=== PATIENT | male | born 1975 | race Caucasian/White ===

== ENCOUNTER 2017-04-13 11:32 | Emergency (ER) | payer OTHER ==
[~2017-04-13] VITALS: Ht 172.7 cm; Wt 68.0 kg
--- NOTE | 2017-04-13 11:40 | NUR ---
PRESENTS SELF TO ED DT CHEST PALPITATION/ MUSCLE SPASMS X WEEKS WHENEVER HE'S TRYING TO SLEEP. PATIENT IS AAO4. APPEARS IN NO APPARENT DISTRESS, RESPIRATION EVEN AND UNLABORED. SKIN IS WARM TO TOUCH AND NON DIAPHORETIC. AFEBRILE. VSS. PENDING MD CAMPBELL
--- NOTE | 2017-04-13 11:52 | NUR ---
DR. ARREGUIN AT BEDSIDE
--- NOTE | 2017-04-13 11:55 | NUR ---
EKG IN PROGRESS
[2017-04-13] MEDS ORDERED: ASPIRIN 325 MG TABLET ONE (11:57)
[2017-04-13] MEDS ORDERED: ASPIRIN EC 325 MG TABLET.DR PO ONE (12:00)
[2017-04-13 12:05] LABS: BASOPHILS # (AUTO) 0.1 /CMM (0.0-0.2); BASOPHILS % (AUTO) 1.8 % (0.0-2.0); EOSINOPHILS # (AUTO) 0.1 /CMM (0.0-0.7); EOSINOPHILS % (AUTO) 1.6 % (0.0-6.0); HEMATOCRIT 45 % (39-51); HEMOGLOBIN 14.9 g/dL (13.5-17.5); LYMPHOCYTES # (AUTO) 2.6 /CMM (0.8-4.8); LYMPHOCYTES % (AUTO) 35.9 % (20.0-44.0); MEAN CORPUSCULAR HEMOGLOBIN 30 PG (26.0-33.0); MEAN CORPUSCULAR HGB CONC 33 g/dl (31.0-36.0); MEAN CORPUSCULAR VOLUME 91 fL (80-96); MONOCYTES # (AUTO) 0.4 /CMM (0.1-1.30); MONOCYTES % (AUTO) 6.1 % (2.0-12.0); NEUTROPHILS % (AUTO) 54.6 % (43.0-81.0); PLATELET COUNT (AUTO) 163 /CMM (150-450); RDW COEFFICIENT OF VARIATION 11.8 (11.5-15.0); RED BLOOD CELL COUNT(AUTO) 4.98 MIL/uL (4.5-6.0); WHITE BLOOD COUNT (AUTO) 7.2 K/uL (4.3-11.0)
[2017-04-13 12:15] LABS: CALCIUM, SERUM 8.9 mg/dL (8.5-10.1); CARBON DIOXIDE 32 mmol/L (21-32); CHLORIDE 104 mmol/L (98-107); CREATININE 1.2 mg/dL (0.6-1.3); GLUCOSE 72 mg/dL (74-106); POTASSIUM 4.1 mmol/L (3.5-5.1); SODIUM SERUM 142 mmol/L (136-145); UREA NITROGEN, BLOOD 11 mg/dL (7-18)
[2017-04-13 12:19] LABS: INR 1.12 (0.87-1.13); PROTHROMBIN TIME 11.8 SECS (9.5-12.7)
[2017-04-13 12:23] LABS: TROPONIN I < 0.017 ng/mL (0.00-0.056)
[2017-04-13 13:46] VITALS: BP 134/77
--- NOTE | 2017-04-13 13:47 | NUR ---
IV removed. Catheter intact and site benign. Pressure and 4x4 applied to site. No bleeding noted.Patient discharged to home in stable condition. Written and verbal after care instructions given. Patient verbalizes understanding of instruction.
== END 2017-04-13 13:47 | disposition home or self-care (01) ==
LOC: ER 11:34
DX: R07.89 Other chest pain (principal); R00.2 Palpitations; Z79.82 Long term (current) use of aspirin
CPT/HCPCS: 36415; 80048-TC; 84484-TC; 85025-TC; 85730-TC; A4606; Z7610

== ENCOUNTER 2018-12-11 16:53 | Emergency (ER) | payer OTHER ==
[~2018-12-11] VITALS: Ht 172.7 cm; Wt 68.0 kg
--- NOTE | 2018-12-11 17:02 | NUR ---
UNABLE TO URINATE SINCE 1600 S/P PROCEDURE FOR BPH AT 1130 TODAY. VERY UNCOMFORTABLE. AOX4, AMB, VSS, RR EVEN AND UNLABORED. SKIN INTACT, NO ACUTE DISTRESS NOTED. READY FOR EVAL.
--- NOTE | 2018-12-11 18:23 | NUR ---
PLASCENCIA INSERTED PER MD ORDER. URINE SAMPLE COLLECTED AND SENT TO STAT LAB
[2018-12-11 18:26] LABS: APPEARANCE,URINE Clear (CLEAR); BILIRUBIN,URINE Negative (NEGATIVE); BLOOD, URINE Moderate Ery/uL (NEGATIVE); COLOR,URINE Yellow (YELLOW); KETONES,URINE Negative (NEGATIVE); LEUKOCYTE ESTERASE ,URINE Negative (NEGATIVE); NITRITE, URINE Negative (NEGATIVE); PROTEIN,URINE Negative (NEGATIVE); UGLUCOSE Negative (NEGATIVE); UROBILINOGEN,URINE 0.2 EU/dL (0.2)
[2018-12-11 18:46] LABS: BACTERIA,URINE Few /HPF (None Seen); SQUAMOUS EPITHELIAL CELL,UR Few /HPF (None Seen); WBC,URINE 0-2 /HPF (0-3)
--- NOTE | 2018-12-11 19:16 | NUR ---
URINE OUTPUT 900ML. SWITCHED TO LEG BAG AND Patient discharged to home in stable condition. Written and verbal after care instructions given. Patient verbalizes understanding of instruction.
[2018-12-11 19:24] VITALS: BP 127/72
== END 2018-12-11 18:57 | disposition home or self-care (01) ==
LOC: ER 16:59
DX: Z46.6 Encounter for fitting and adjustment of urinary device (principal); N40.0 Benign prostatic hyperplasia without lower urinary tract symptoms
CPT/HCPCS: 81000-TC

== ENCOUNTER 2018-12-14 07:56 | Emergency (ER) | payer OTHER ==
[~2018-12-14] VITALS: Ht 172.7 cm; Wt 70.8 kg
[2018-12-14 08:01] VITALS: BP 138/82
--- NOTE | 2018-12-14 08:10 | NUR ---
Jewell bucio in ED - 12/14/18 at 0826 by REGI TEMO GUARDADO, WILL OBSERVE IF PT ABLE TO PEE.
--- NOTE | 2018-12-14 08:10 | NUR ---
PLASCENCIA CATH REMOVE, WILL OBSERVE IF PT ABLE TO PASS URINE.
--- NOTE | 2018-12-14 08:45 | NUR ---
PT ABLE TO PASS URINE. DR. ADDISON AWARE.
--- NOTE | 2018-12-14 08:45 | NUR ---
Patient discharged to home in stable condition. Written and verbal after care instructions given. Patient verbalizes understanding of instruction.
== END 2018-12-14 08:46 | disposition home or self-care (01) ==
LOC: ER 08:05
DX: R33.9 Retention of urine, unspecified (principal); N40.0 Benign prostatic hyperplasia without lower urinary tract symptoms
CPT/HCPCS: 99281; A4606

== ENCOUNTER 2018-12-15 10:06 | Emergency (ER) | payer OTHER ==
[~2018-12-15] VITALS: Ht 172.7 cm; Wt 68.0 kg
--- NOTE | 2018-12-15 10:10 | NUR ---
patient presented to the ER c/o unable to urinate since this morning. Alert and oriented x 3, verbally responsive and able to make needs known. on room air, breathing evenly and unlabored. kept comfortable, will continue to monitor accordingly.
[2018-12-15] MEDS ORDERED: LIDOCAINE 2% JEL UROJET 10 ML MM ONE ×2 (10:44→11:00)
[2018-12-15 11:44] VITALS: BP 120/71
--- NOTE | 2018-12-15 11:45 | NUR ---
Patient discharged to home in stable condition. Written and verbal after care instructions given. Patient verbalizes understanding of instruction.
== END 2018-12-15 11:45 | disposition home or self-care (01) ==
LOC: ER 10:18
DX: R33.9 Retention of urine, unspecified (principal); N40.0 Benign prostatic hyperplasia without lower urinary tract symptoms
CPT/HCPCS: J3490

== ENCOUNTER 2018-12-29 14:25 | Emergency (ER) | payer OTHER ==
[~2018-12-29] VITALS: Ht 172.7 cm; Wt 71.2 kg
--- NOTE | 2018-12-29 14:31 | NUR ---
BIB SELF W C/O LLQ ABD PAIN RADIATING TO L GROIN x 1 WEEK. HAD A PROSTATE PROCEDURE 2 WEEKS AGO, TO ER BED 1, HOOKED TO MONITOR, ROSHAN RAYMOND AT BEDSIDE
--- NOTE | 2018-12-29 14:51 | NUR ---
Female sewage screen operator accompanied Felecia May PA-C for inguinal hernia exam on pt.
--- NOTE | 2018-12-29 15:09 | NUR ---
Patient discharged to home in stable condition. Written and verbal after care instructions given. Patient verbalizes understanding of instruction.
[2018-12-29 15:12] VITALS: BP 113/74
== END 2018-12-29 15:13 | disposition home or self-care (01) ==
LOC: ER 14:28
DX: K40.90 Unilateral inguinal hernia, without obstruction or gangrene, not specified as recurrent (principal); N40.0 Benign prostatic hyperplasia without lower urinary tract symptoms
CPT/HCPCS: 99281; A4606; Z7502

== ENCOUNTER 2019-01-27 13:08 | Emergency (ER) | payer OTHER ==
[~2019-01-27] VITALS: Ht 172.7 cm; Wt 68.0 kg
--- NOTE | 2019-01-27 14:20 | NUR ---
CHRONIC RIGHT FLANK PAIN, CAN NO LONGER WAIT FOR UROLOGY APPOINTMENT, PATIENT A/OX4, BREATHING EVEN AND UNLABORED, NO DISTRESS. KEPT COMFORTABLE, WILL CONTINUE TO MONITOR. WAITING FOR MD CAMPBELL.
[2019-01-27 15:26] LABS: APPEARANCE,URINE Clear (CLEAR); BILIRUBIN,URINE Negative (NEGATIVE); BLOOD, URINE Small Ery/uL (NEGATIVE); COLOR,URINE Yellow (YELLOW); KETONES,URINE Negative (NEGATIVE); LEUKOCYTE ESTERASE ,URINE Negative (NEGATIVE); NITRITE, URINE Negative (NEGATIVE); PROTEIN,URINE Negative (NEGATIVE); UGLUCOSE Negative (NEGATIVE); UROBILINOGEN,URINE 0.2 EU/dL (0.2)
[2019-01-27 15:48] VITALS: BP 121/70
[2019-01-27 16:03] LABS: WBC,URINE 0-2 /HPF (0-3)
[2019-01-27 16:04] LABS: BACTERIA,URINE Rare /HPF (None Seen); SQUAMOUS EPITHELIAL CELL,UR Rare /HPF (None Seen)
--- NOTE | 2019-01-27 16:42 | NUR ---
Patient discharged to home in stable condition. Written and verbal after care instructions given. Patient verbalizes understanding of instruction.
== END 2019-01-27 16:43 | disposition home or self-care (01) ==
LOC: ER 13:08
DX: N20.0 Calculus of kidney (principal); N40.0 Benign prostatic hyperplasia without lower urinary tract symptoms
CPT/HCPCS: 81000-TC; 82962-TC

== ENCOUNTER 2022-03-11 10:43 | Emergency (ER) | payer OTHER ==
[~2022-03-11] VITALS: Ht 172.7 cm; Wt 74.8 kg
[2022-03-11 11:02] VITALS: BP 112/73
--- NOTE | 2022-03-11 11:02 | NUR ---
To ER bed 3, "I pee a lot/have the urge and it rivera when I ejaculate. Swelling of Left Testicle X3wks", aaox3, breathing even and non labored, awaiting md orders
--- NOTE | 2022-03-11 11:07 | NUR ---
URINE COLLECTED AND SENT TO LAB
[2022-03-11 11:54] LABS: BILIRUBIN,URINE NEGATIVE (NEGATIVE); COLOR,URINE YELLOW (YELLOW); LEUKOCYTE ESTERASE ,URINE NEGATIVE (NEGATIVE); NITRITE, URINE NEGATIVE (NEGATIVE); PROTEIN,URINE NEGATIVE (NEGATIVE); UGLUCOSE NEGATIVE (NEGATIVE); UROBILINOGEN,URINE 0.2 EU/dL (0.2)
[2022-03-11 12:08] LABS: BACTERIA,URINE Few /HPF (None Seen); SQUAMOUS EPITHELIAL CELL,UR Few /HPF (None Seen); WBC,URINE 0-2 /HPF (0-3)
[2022-03-11] MEDS ORDERED: CEFTRIAXONE 1 G VIAL IM ONE (12:30)
[2022-03-11] MEDS ORDERED: DOXYCYCLINE HYCLATE (100 MG) 100 MG TABLET PO ONE (12:30)
[2022-03-11] MEDS ORDERED: CEFTRIAXONE 500 MG VIAL ONE (12:35)
[2022-03-11] MEDS ORDERED: DOXYCYCLINE HYCLATE (100 MG) 100 MG TABLET ONE (12:35)
[2022-03-11] MEDS ORDERED: LIDOCAINE /MPF 1% VIAL 5 ML VIAL ONE (12:36)
[2022-03-11] MEDS ORDERED: DOXY100C2 PO (13:03)
== END 2022-03-11 13:10 | disposition home or self-care (01) ==
LOC: ER 11:03
DX: N34.2 Other urethritis (principal); Z87.438 Personal history of other diseases of male genital organs
CPT/HCPCS: 81001; 87086; 87491; 87591; 96372; 99283; J0696; J3490

== ENCOUNTER 2024-03-27 22:38 | Emergency (ER) | payer OTHER ==
[~2024-03-27] VITALS: Ht 172.7 cm; Wt 72.6 kg
[~2024-03-27 22:38] MED LIST: DOXY100C2 PO
[2024-03-27] MEDS ORDERED: CEFTRIAXONE 500 MG VIAL ONE (23:13)
[2024-03-27] MEDS ORDERED: AZITHROMYCIN 250 MG TABLET ONE (23:14)
[2024-03-27] MEDS ORDERED: METRONIDAZOLE 500 MG TABLET ONE (23:15)
[2024-03-27] MEDS: METRONIDAZOLE 500 MG TABLET PO ONE (23:20)
[2024-03-27] MEDS: AZITHROMYCIN 250 MG TABLET PO ONE (23:25)
[2024-03-27] MEDS: CEFTRIAXONE 500 MG VIAL IM ONE (23:30)
[2024-03-27 23:40] LABS: APPEARANCE,URINE CLEAR (CLEAR); BILIRUBIN,URINE NEGATIVE (NEGATIVE); BLOOD, URINE 1+ Ery/uL (NEGATIVE); COLOR,URINE YELLOW (YELLOW); KETONES,URINE NEGATIVE (NEGATIVE); LEUKOCYTE ESTERASE ,URINE NEGATIVE (NEGATIVE); NITRITE, URINE NEGATIVE (NEGATIVE); PROTEIN,URINE NEGATIVE (NEGATIVE); UGLUCOSE NEGATIVE (NEGATIVE); UROBILINOGEN,URINE 0.2 EU/dL (0.2)
[2024-03-27 23:44] LABS: ADD URINE CULTURE NO; BACTERIA,URINE None seen /HPF (None Seen); SQUAMOUS EPITHELIAL CELL,UR Few /HPF (None Seen); WBC,URINE 0-2 /HPF (0-3)
[2024-03-28 00:04] VITALS: BP 125/78; TEMP 98; O2SAT 98
[2024-03-30 21:06] LABS: CHLAMYDIA TRACHOMATIS NAA Negative (Negative); NEISSERIA GONORRHOEAE NAA Negative (Negative)
== END 2024-03-28 00:05 | disposition home or self-care (01) ==
LOC: ER 22:43
DX: Z11.3 Encounter for screening for infections with a predominantly sexual mode of transmission (principal); R30.0 Dysuria
CPT/HCPCS: 99283; 96372; 81001; 87491; 87591; J0696